=== PATIENT | female | born 1975 | race Two or more races ===

== ENCOUNTER 2019-07-06 10:26 | Emergency (ER) | payer OTHER ==
[2019-07-06 10:47] VITALS: BP 139/89
--- NOTE | 2019-07-06 11:59 | UC ---
Ear Complaint HPI - HPI Summary HPI Summary: has had URI symps for 1 week, yesterday started with L ear pain and R eye red and draining clear fluid is taking OTC cold and sinus med w/o relief - History of Current Complaint Chief Complaint: UCRespiratory Stated Complaint: EAR PAIN/ THROAT PAIN Time Seen by Provider: 07/06/19 11:19 Hx Obtained From: Patient Hx Last Menstrual Period: 06/19/19 Onset/Duration: Gradual Onset Severity Initially: Mild Severity Currently: Severe Pain Intensity: 9 Aggravating Factors: Nothing Alleviating Factors: Nothing Associated Signs/Symptoms: Negative: Discharge, Hearing Loss - Allergies/Home Medications Allergies/Adverse Reactions: Allergies Allergy/AdvReac Type Severity Reaction Status Date / Time No Known Allergies Allergy Verified 07/06/19 10:47 PMH/Surg Hx/FS Hx/Imm Hx Previously Healthy: Yes Neurological History: Seizures - treatred with Lamictal - Surgical History Surgical History: None - Family History Known Family History: Positive: Non-Contributory - Social History Occupation: Employed Full-time Lives: With Family Alcohol Use: None Substance Use Type: None Smoking Status (MU): Never Smoked Tobacco Have You Smoked in the Last Year: No - Immunization History Most Recent Influenza Vaccination: [id number] Most Recent Tetanus Shot: [id number] Most Recent Pneumonia Vaccination: NA Review of Systems All Other Systems Reviewed And Are Negative: Yes Constitutional: Positive: Fever Skin: Positive: Negative. Negative: Rash Respiratory: Positive: Cough. Negative: Shortness Of Breath Cardiovascular: Positive: Negative. Negative: Chest Pain Gastrointestinal: Positive: Negative. Negative: Vomiting, Diarrhea Musculoskeletal: Positive: Negative. Negative: Arthralgia Psychological: Positive: Negative Is Patient Immunocompromised?: No Physical Exam Triage Information Reviewed: Yes Appearance: Well-Appearing, No Pain Distress, Well-Nourished Vital Signs: Initial Vital Signs Temp 99.8 F 07/06/19 10:44 Pulse 95 07/06/19 10:44 Resp 16 07/06/19 10:44 BP 139/89 07/06/19 10:44 Pulse Ox 100 07/06/19 10:44 Vital Signs Reviewed: Yes Eyes: Positive: Conjunctiva Inflamed. Negative: Discharge ENT Exam: Normal ENT: Positive: Pharynx normal, Nasal congestion, TM dull - L TM pink Neck exam: Normal Neck: Positive: Nontender, No Lymphadenopathy Respiratory Exam: Normal Respiratory: Positive: Lungs clear Cardiovascular Exam: Normal Cardiovascular: Positive: RRR Neurological Exam: Normal Neurological: Positive: Alert Skin Exam: Normal Skin: Negative: Rashes Ear Complaint Course/Dx - Differential Dx/Diagnosis Differential Diagnosis/HQI/PQRI: Bronchitis, Cerumen Impaction, Otitis Media, Pharyngitis, URI Provider Diagnosis: Upper respiratory infection, Conjunctivitis Discharge ED - Sign-Out/Discharge Documenting (check all that apply): Patient Departure All imaging exams completed and their final reports reviewed: No Studies - Discharge Plan Condition: Good Disposition: HOME Prescriptions: Cefdinir [Cefdinir 300 MG CAP] 300 mg PO BID #20 capsule Patient Education Materials: Upper Respiratory Infection (ED), Conjunctivitis ( ED) Referrals: Ed Pat SAND HAULER [Primary Care Provider] - 2 Days (if no better ) Additional Instructions: rest and drink plenty of fluids start antibiotic and take as directed use Tylenol and ibuprofen as directed for pain and fever - Billing Disposition and Condition Condition: GOOD Disposition: Home
== END 2019-07-06 12:03 | disposition home or self-care (01) ==
LOC: UCEAST 10:26
DX: J06.9 Acute upper respiratory infection, unspecified (principal); H10.9 Unspecified conjunctivitis; H92.02 Otalgia, left ear
CPT/HCPCS: 99212; G0463